=== PATIENT | female | born 1970 | race Caucasian/White ===

== ENCOUNTER 2021-07-08 17:39 | Inpatient (IN) | payer OTHER ==
[~2021-07-08] VITALS: Ht 170.2 cm; Wt 70.3 kg
[2021-07-08] MEDS ORDERED: NOREPINEPHRINE 8 MG/250 ML 250 ML IV ONE (20:52)
[2021-07-08] MEDS ORDERED: LACTATED RINGERS 1,000 ML IV ONE (20:55)
[2021-07-08] MEDS: LACTATED RINGERS 1,000 ML IV SCH (21:00)
--- NOTE | 2021-07-08 21:08 | Tele-ICU Consult ---
History of Present Illness History of Present Illness Date Seen by Provider: Jul 08, 2021 Time Seen by Provider: 21:04 Date of Admission 51 y old lady with no significant PMHX, presented with hypotension 84/60- received 3l fluid challenge wo improvement. Pt was started on rocephin/ followed by zosyn ; levophed was added for hemodynamic hindu. Allergies and Home Medications Allergies Coded Allergies: No Allergy Information Available (Unverified , 07/08/21) Review of Systems Constitutional: no symptoms reported, see HPI Sepsis Event Evaluation Sepsis Stage: Sepsis Possible Source: Genitouriary Height, Weight, BMI Height: '" Weight: lbs. oz. kg; BMI Method: Exam Exam Patient acknowledged, consented, and participated in this virtual visit which was conducted using real time audio/video Height & Weight Height: '" Weight: lbs. oz. kg; BMI Method: General Appearance: No Apparent Distress Assessment/Plan Assessment/Plan Septic shock due to UTI -LR @150CC/H LEVOPHED ABX follow sepsis protocol basic labs ordered. p t was visualized CARO NAVAS MD Jul 08, 2021 21:08
[2021-07-08 21:16] LABS: BASOPHILS # (AUTO) 0.1 10^3/uL (0.0-0.1); BASOPHILS % (AUTO) 1 % (0-10); EOSINOPHILS % (AUTO) 0 % (0-10); HEMOGLOBIN 12.1 g/dL (11.5-16.0)
[2021-07-08 21:18] LABS: HEMATOCRIT 35 % (35-52); LYMPHOCYTES # (AUTO) 0.3 10^3/uL (1.0-4.0); LYMPHOCYTES % (AUTO) 2 % (12-44); MEAN CORPUSCULAR HEMOGLOBIN 34 pg (25-34); MEAN CORPUSCULAR HGB CONC 35 g/dL (32-36); MEAN CORPUSCULAR VOLUME 98 fL (80-99); MEAN PLATELET VOLUME 11.1 fL (9.0-12.2); MONOCYTES % (AUTO) 9 % (0-12); NEUTROPHILS % (AUTO) 86 % (42-75); PLATELET COUNT 106 10^3/uL (130-400); WHITE BLOOD COUNT 11.6 10^3/uL (4.3-11.0)
[2021-07-08 21:29] LABS: POTASSIUM 3.3 MMOL/L (3.6-5.0)
[2021-07-08 21:30] LABS: CALCIUM 7.8 MG/DL (8.5-10.1)
[2021-07-08] MEDS: NOREPINEPHRINE 8 MG/250 ML 250 ML IV SCH (21:30)
[2021-07-08 21:34] LABS: CREATININE SERUM 3.5 MG/DL (0.60-1.30)
[2021-07-08] MEDS ORDERED: diphenhydrAMINE 50 MG/ML INJ (BENADRYL) IVP ONE (21:45)
--- NOTE | 2021-07-08 21:45 | Tele-ICU Consult ---
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 Pt was found hypotensive 80/60; 3l iv fluids given/ rocephin, zosyn given. Procal 98/ cxray showed interstitial changes. She took Ibuprofen frequently. Sepsis protocol. Allergies and Home Medications Allergies Coded Allergies: No Allergy Information Available (Unverified , 07/08/21) Past Medical/Social/Family Hx Patient Social History Tobacco Use?: No Smoking Status: Never a Smoker Past Medical History abnormal pap smear Review of Systems Constitutional: see HPI Sepsis Event Evaluation Height, Weight, BMI Height: '" Weight: lbs. oz. kg; BMI Method: Exam Exam Patient acknowledged, consented, and participated in this virtual visit which was conducted using real time audio/video Vital Signs Date Time Temp Pulse Resp B/P (MAP) Pulse Ox O2 Delivery O2 Flow Rate FiO2 07/08/21 21:30 125 84/53 07/08/21 21:00 38.1 125 20 84/53 98 Room Air Height & Weight Height: '" Weight: lbs. oz. kg; BMI Method: General Appearance: No Apparent Distress Results Lab Laboratory Tests 07/08/21 21:00 Assessment/Plan Assessment/Plan Septic shock due to uti -sepsis protocol repeat labs/ iv fluids on abx FELIX repeat labs/ continue iv fluids -follow bicarb/ if HCO3<20 ABG will be checked. pt was visualized CARO NAVAS MD Jul 08, 2021 21:45
[2021-07-08 21:49] LABS: ATYPICAL LYMPHOCYTES 1 %; BAND NEUTROPHILS 6 %; BURR CELLS SLIGHT; LYMPHOCYTES % (MANUAL) 7 %; METAMYELOCYTES % 1 %; MONOCYTES % (MANUAL) 9 %; NEUTROPHILS % (MANUAL) 76 %
[2021-07-08] MEDS ORDERED: morphine INJ 4 MG/ML 1 ML (VIAL/SYRINGE) IVP STA (23:33)
[2021-07-09 03:26] LABS: BASOPHILS # (AUTO) 0.1 10^3/uL (0.0-0.1); BASOPHILS % (AUTO) 1 % (0-10); EOSINOPHILS % (AUTO) 0 % (0-10); HEMATOCRIT 34 % (35-52); HEMOGLOBIN 11.8 g/dL (11.5-16.0); LYMPHOCYTES # (AUTO) 0.4 10^3/uL (1.0-4.0); LYMPHOCYTES % (AUTO) 3 % (12-44); MEAN CORPUSCULAR HEMOGLOBIN 34 pg (25-34); MEAN CORPUSCULAR HGB CONC 35 g/dL (32-36); MEAN CORPUSCULAR VOLUME 99 fL (80-99); MEAN PLATELET VOLUME 10.7 fL (9.0-12.2); MONOCYTES # (AUTO) 1.2 10^3/uL (0.0-1.0); MONOCYTES % (AUTO) 9 % (0-12); NEUTROPHILS # (AUTO) 11.9 10^3/uL (1.8-7.8); NEUTROPHILS % (AUTO) 86 % (42-75); PLATELET COUNT 112 10^3/uL (130-400); WHITE BLOOD COUNT 13.8 10^3/uL (4.3-11.0)
[2021-07-09] MEDS: LACTATED RINGERS 1,000 ML IV SCH ×4 (03:30→21:56)
[2021-07-09 03:47] LABS: ALBUMIN 2.3 GM/DL (3.2-4.5); POTASSIUM 3.6 MMOL/L (3.6-5.0)
[2021-07-09 03:48] LABS: CALCIUM 7.9 MG/DL (8.5-10.1)
[2021-07-09 03:49] LABS: TOTAL PROTEIN 5.5 GM/DL (6.4-8.2)
[2021-07-09 03:51] LABS: BILIRUBIN,TOTAL 0.9 MG/DL (0.1-1.0)
[2021-07-09 03:53] LABS: CREATININE SERUM 3.66 MG/DL (0.60-1.30)
[2021-07-09 03:56] LABS: MAGNESIUM 1.5 MG/DL (1.6-2.4)
[2021-07-09] MEDS: POTASSIUM CL 10MEQ/50ML IVPB 50 ML IV SCH ×2 (04:03→04:50)
[2021-07-09] MEDS: KCL 20 MEQ TAB (K-DUR) PO SCH (04:04)
[2021-07-09] MEDS: MAGNESIUM 1 GM/100 ML IVPB 100 ML IV SCH ×3 (04:04→04:51)
[2021-07-09] MEDS ORDERED: diphenhydrAMINE 25 MG TAB (BENADRYL) PO PRN (08:30)
--- NOTE | 2021-07-09 08:42 | Pulmonary Progress Note ---
SYEDA JOY MED STUDENT 07/09/21 0842: Subjective Date Seen by a Provider: Jul 09, 2021 Time Seen by a Provider: 07:30 Subjective/Events-last exam Patient reports feeling tired and weak. Wanting to have something to eat. Tachycardic at 120 per bedside monitor and remains on levophed at 0.05 mcg/kg/min currently. Review of Systems General: No Chills, No Night Sweats HEENT: No Head Aches, No Visual Changes Pulmonary: No Dyspnea, No Cough Cardiovascular: No: Chest Pain, Palpitations Gastrointestinal: No: Nausea, Vomiting, Abdominal Pain Genitourinary: No Dysuria, No Frequency; Other (bragg) Musculoskeletal: back pain; No: neck pain, shoulder pain Neurological: No: Weakness, Numbness, Change in speech, Confusion Sepsis Event Evaluation Height, Weight, BMI Height: '" Weight: lbs. oz. kg; 24.40 BMI Method: Focused Exam Lactate Level 07/08/21 21:00: Lactic Acid Level 2.31*H 07/08/21 22:55: Lactic Acid Level 2.63*H 07/09/21 03:10: Lactic Acid Level 1.94 Exam Exam Patient acknowledged, consented, and participated in this virtual visit which was conducted using real time audio/video Vital Signs Date Time Temp Pulse Resp B/P (MAP) Pulse Ox O2 Delivery O2 Flow Rate FiO2 07/09/21 08:00 37.6 07/09/21 06:00 124 37 92/62 94 Room Air 07/09/21 05:00 125 35 115/59 91 Room Air 07/09/21 04:00 129 13 111/58 92 Room Air 07/09/21 04:00 97 Room Air 07/09/21 03:37 37.8 07/09/21 03:00 117 13 114/63 96 Room Air 07/09/21 02:00 117 31 107/62 94 Room Air 07/09/21 01:00 122 35 109/61 92 Room Air 07/09/21 01:00 122 07/09/21 00:00 120 33 104/56 94 Room Air 07/08/21 23:59 97 Room Air 07/08/21 23:00 134 16 105/58 98 Room Air 07/08/21 22:00 130 11 106/62 99 Room Air 07/08/21 21:45 133 35 112/60 100 Room Air 07/08/21 21:30 135 19 114/51 95 Room Air 07/08/21 21:30 125 84/53 07/08/21 21:15 126 35 104/48 98 Room Air 07/08/21 21:00 38.1 125 20 84/53 98 Room Air 07/08/21 20:51 132 I & O 07/09/21 07:00 Intake Total 9100 ml Output Total 425 ml Balance 8675 ml Height & Weight Height: '" Weight: lbs. oz. kg; 24.40 BMI Method: General Appearance: No Apparent Distress, WD/WN HEENT: PERRL/EOMI, Moist Mucous Membranes Neck: Full Range of Motion, Non Tender, Supple, Other (RIJ CVC) Respiratory: Chest Non Tender, Lungs Clear, Normal Breath Sounds, No Accessory Muscle Use, No Respiratory Distress Cardiovascular: No Edema, No Murmur, Normal Peripheral Pulses, Tachycardia Peripheral Pulses: 2+ Dorsalis Pedis (R), 2+ Left Dors-Pedis (L), 2+ Radial Pulses (R), 2+ Radial Pulses (L) Gastrointestinal: normal bowel sounds, non tender, soft; No distended, No guarding, No rebound, No tenderness Extremity: Normal Capillary Refill, Non Tender, No Calf Tenderness, No Pedal Edema Neurologic/Psychiatric: Alert, Oriented x3, No Motor/Sensory Deficits, Normal 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, 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 KASSY HUTSON MD 07/09/21 1246: Supervisory-Addendum Brief Verification & Attestation Participated in pt care: history, MDM, physical Personally performed: history, MDM, supervision of care Care discussed with: Medical Student Procedures: n/a A medical student performed and documented this service. I reviewed all info rmation documented by the medical student and made modifications to such information, when appropriate. Medical student performed patients physical exam. Medical decision making was done during tele-rounds with this medical student and a bedside RN . SYEDA JOY MED STUDENT Jul 09, 2021 08:42 KASSY HUTSON MD Jul 09, 2021 12:46
[2021-07-09] MEDS: HYDROcodone/APAP 5 MG/325 MG (LORTAB) TAB PO PRN (08:49)
[2021-07-09] MEDS: cefTRIAXone 1,000 MG in WATER (STERILE) FOR INJECTION 10 ML IV SCH (08:50)
--- NOTE | 2021-07-09 09:48 | History & Physical-Hospitalist ---
History of Present Illness HPI/Chief Complaint Pt is a 51yoCF who presented from outside ER due to septic shock. She reports that she has not been feeling well since the . She has had fevers and chills. She developed some abdominal pain and back pain as well. She decided to seek evaluation yesterday in the emergency room when she did not get any better and was found to have a urinary tract infection with hypotension. She was transferred here for ICU level care. They attempted fluid resuscitation due to the hypotension but she remained with a map below 65 so was started on Levophed. This morning she states she is feeling a little better but is still having back pain. Her mother is at bedside and gives most of the history. Mother reports that a CT of her abdomen was done but those records were not sent so we have requested that. Source: patient Date Seen 07/09/21 Time Seen by a Provider: 09:43 Attending Physician Naldo Brito MD PCP Nikko Umanzor MD Referring Physician Date of Admission Jul 08, 2021 at 20:43 Home Medications & Allergies Home Medications Reviewed patient Home Medication Reconciliation performed by pharmacy medication reconciliations thermal technician and/or nursing. Patients Allergies have been reviewed. Allergies Allergies Coded Allergies No Allergy Information Available (Unverified07/08/21) Past Bktxffl-Fwqlpf-Nzubnk Hx Patient Social History Tobacco Use?: No Smoking Status: Never a Smoker Substance use?: No Alcohol Use?: No Pt feels they are or have been: No Immunizations Up To Date First/Initial COVID19 Vaccinat: JANUARY 14 2021 Second COVID19 Vaccination [place]: January Current Status status: No status: No Advance Directives: No Communicates: Verbally Primary Language: Ghanaian Preferred Spoken Language: Ghanaian Is interpretation needed?: No Sensory deficits: Vision impairment Implanted or Applied Medical D: None Past Medical History abnormal pap smear Family Medical History Reviewed Nursing Family Hx No Pertinent Family Hx Mother alive Review of Systems Constitutional: fever, malaise EENTM: no symptoms reported Respiratory: No cough, No short of breath Cardiovascular: no symptoms reported Gastrointestinal: abdominal pain, nausea, vomiting Genitourinary: see HPI Musculoskeletal: back pain Skin: no symptoms reported Psychiatric/Neurological: No Symptoms Reported Physical Exam Physical Exam Vital Signs Vital Signs - First Documented 07/08/21 07/08/21 20:51 21:00 Temp 38.1 Pulse 132 Resp 20 B/P (MAP) 84/53 Pulse Ox 98 O2 Delivery Room Air Capillary Refill : Height, Weight, BMI Height: '" Weight: lbs. oz. kg; 24.40 BMI Method: General Appearance: No Apparent Distress, WD/WN HEENT: PERRL/EOMI, Moist Mucous Membranes Neck: Normal Inspection, Supple Respiratory: Lungs Clear, No Respiratory Distress Cardiovascular: Regular Rate, Rhythm, No Murmur Gastrointestinal: Normal Bowel Sounds, Non Tender, Soft Neurologic/Psychiatric: Alert, Oriented x3, Normal Mood/Affect Skin: Normal Color, Warm/Dry Results Results/Procedures Labs Laboratory Tests 07/08/21 21:00 07/09/21 03:10 Patient resulted labs reviewed. Imaging: Reviewed Imaging Report Assessment/Plan Admission Diagnosis Septic Shock Admission Status: Inpatient Order (span 2 midnights) Reason for Inpatient Admission: see below Assessment and Plan Septic Shock UTI GNR bacteremia Continue on Rocephin Await cultures and sensitivities from OSH COVID negative at OSH Currently on levophed, wean as able request CT results from [facility] Hydrocodone for pain FELIX Was talking high dose Ibuprofen for pain trend Not acidotic and K WNL Monitor UOP DVT ppx: heparin due to FELIX Diagnosis/Problems Diagnosis/Problems (1) FELIX (acute kidney injury) (2) UTI (urinary tract infection) (3) Bacteremia (4) Septic shock NALDO BRITO MD Jul 09, 2021 09:48
[2021-07-09] MEDS ORDERED: PANTOPRAZOLE 40 MG (PROTONIX) VIAL IV ONE (10:00)
--- NOTE | 2021-07-09 14:57 | Physical Therapy Evaluation ---
PT Evaluation-General Medical Diagnosis Admission Date Jul 08, 2021 at 20:43 Medical Diagnosis: sepsis, UTI Onset Date: Jul 08, 2021 Therapy Diagnosis Therapy Diagnosis: impaired mobility, strength, endurance Precautions Precautions/Isolations: Standard Precautions Referral Physician: Daryl Reason for Referral: Evaluation/Treatment Social History Home: Single Level Current Living Status: Children Entry Into Home: Level Entry Prior Prior Level of Function SCALE: Activities may be completed with or without assistive devices. 7-Bhqpvgttbg-wfjubcm completes the activity by him/herself with no assistance from a helper. 5-Set-up or Clean-up Assistance-helper sets up or cleans up; patient completes activity. [place] assists only prior to or following the activity. 4-Supervision or Touching Assistance-helper provides verbal cues and/or touching/steadying and/or contact guard assistance as patient completes activity. Assistance may be provided throughout the activity or intermittently. 3-Partial/Moderate Assistance-helper does LESS THAN HALF the effort. [place] lifts, holds or supports trunk or limbs, but provides less than half the effort. 2-Substantial/Maximal Assistance-helper does MORE THAN HALF the effort. [place] lifts or holds trunk or limbs and provides more than half the effort. 1-Zbjakopwd-aqguba does ALL the effort. Patient does none of the effort to complete the activity. Or, the assistance of 2 or more helpers is required for the patient to complete the activity. If activity was not attempted, code reason: 7-Patient Refused. 9-Not Applicable-not attempted and the patient did not perform the activity before the current illness, exacerbation or injury. 10-Not Attempted due to Environmental Limitations-(lack of equipment, weather restraints, etc.). 88-Not Attempted due to Medical Conditions or Safety Concerns. Bed Mobility: 6 Transfers (B,C,W/C): 6 Gait: 6 Stairs: 6 Indoor Mobility (Ambulation): Independent Stairs: Independent PT Evaluation-Current Subjective Patient in bed pre tx, agrees to PT, has no pain at rest. Pt/Family Goals "to get stronger" Objective Patient Orientation: Person, Place, Situation Attachments: Oxygen, Pope Catheter, IV ROM/Strength ROM Lower Extremities WNL Strength Lower Extremities LLE (hip flexion 4/5, knee flexion 4/5, knee extension 4/5, dorsiflexion 4/5), RLE (hip flexion 4/5, knee flexion 4/5, knee extension 4/5, dorsiflexion 4/5) Sensory Vision: Functional Hearing: Functional Sensation Right Lower Extremit: Intact Sensation Left Lower Extremity: Intact Transfers Roll Left to Right (QC): 6 Sit to Lying (QC): 4 Lying to Sitting/Side of Bed(Q: 4 Sit to Stand (QC): 4 SBA for supine <-> sit, CGA for sit <-> stand. Patient was able to stand for several minutes, didn't want to ambulate forward yet, got a little dizzy after standing but it cleared fairly quickly, sat down after getting tired. Balance Sitting Static: Normal Sitting Dynamic: Normal Standing Static: Fair Standing Dynamic: Fair Treatment BLE supine exercises x20 (AP, HS) Assessment/Needs Patient in bed post tx with nurse call, phone, tray, all needs met. Patient has impaired mobility, strength, endurance. Patient gets dizzy after standing but clears quickly, needs CGA for sit to stand. 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 Time Frame: Jul 16, 2021 Roll Left & Right (QC): 6 Sit to Lying (QC): 6 Lying-Sitting on Side/Bed(QC): 6 Sit to Stand (QC): 4 Chair/Pjb-bc-Czymq Xfer(QC): 4 Walk 10 feet (QC): 4 Walk 50ft with 2 Turns (QC): 4 PT Plan Problem List Problem List: Activity Tolerance, Functional Strength, Safety, Balance, Gait, Transfer, Bed Mobility, ROM Treatment/Plan Treatment Plan: Continue Plan of Care Treatment Plan: Bed Mobility, Education, Functional Activity Penny, Functional Strength, Gait, Safety, Therapeutic Exercise, Transfers Treatment Duration: Jul 16, 2021 Frequency: 6 times per week Estimated Hrs Per Day: .25 hour per day Patient and/or Family Agrees t: Yes Safety Risks/Education Patient Education: Transfer Techniques, Correct Positioning, Safety Issues Teaching Recipient: Patient Teaching Methods: Demonstration, Discussion Response to Teaching: Reinforcement Needed Discharge Recommendations Plan Patient will perform bed mobility and transfer training, balance and endurance training, functional strengthening, stair training, gait training, and education, to improve functional mobility and independence at home. Therapy Discharge Recommendati: Home & Family, Post Acute PT Time/GCodes Time In: 1416 Time Out: 1430 Total Billed Treatment Time: 14 Total Billed Treatment 1 visit EVL 14' ALVINO NERI PT Jul 09, 2021 14:57
[2021-07-09 15:13] VITALS: BP 112/68
[2021-07-09] MEDS: NOREPINEPHRINE 8 MG/250 ML 250 ML IV SCH (15:13)
[2021-07-10] MEDS: HYDROcodone/APAP 5 MG/325 MG (LORTAB) TAB PO PRN ×2 (04:32→10:07)
[2021-07-10] MEDS: LACTATED RINGERS 1,000 ML IV SCH (04:32)
[2021-07-10 04:38] LABS: EOSINOPHILS % (AUTO) 0 % (0-10); HEMOGLOBIN 10.6 g/dL (11.5-16.0); NEUTROPHILS % (AUTO) 83 % (42-75); PLATELET COUNT 90 10^3/uL (130-400)
[2021-07-10 04:40] LABS: BASOPHILS # (AUTO) 0.1 10^3/uL (0.0-0.1); BASOPHILS % (AUTO) 1 % (0-10); HEMATOCRIT 31 % (35-52); LYMPHOCYTES # (AUTO) 0.6 10^3/uL (1.0-4.0); LYMPHOCYTES % (AUTO) 6 % (12-44); MEAN CORPUSCULAR HEMOGLOBIN 33 pg (25-34); MEAN CORPUSCULAR HGB CONC 34 g/dL (32-36); MEAN CORPUSCULAR VOLUME 97 fL (80-99); MEAN PLATELET VOLUME 10.9 fL (9.0-12.2); MONOCYTES # (AUTO) 0.9 10^3/uL (0.0-1.0); MONOCYTES % (AUTO) 9 % (0-12); NEUTROPHILS # (AUTO) 8.5 10^3/uL (1.8-7.8); WHITE BLOOD COUNT 10.3 10^3/uL (4.3-11.0)
[2021-07-10 04:50] LABS: POTASSIUM 3.8 MMOL/L (3.6-5.0)
[2021-07-10 04:51] LABS: CALCIUM 7.9 MG/DL (8.5-10.1)
[2021-07-10 04:54] LABS: BILIRUBIN,TOTAL 0.7 MG/DL (0.1-1.0)
[2021-07-10 04:55] LABS: PHOSPHORUS 1.7 MG/DL (2.3-4.7)
[2021-07-10 04:56] LABS: CREATININE SERUM 4.13 MG/DL (0.60-1.30)
[2021-07-10 04:59] LABS: MAGNESIUM 2.4 MG/DL (1.6-2.4)
[2021-07-10] MEDS: MAGNESIUM 1 GM/100 ML IVPB 100 ML IV SCH (05:00)
[2021-07-10] MEDS: KCL 20 MEQ TAB (K-DUR) PO SCH (05:00)
[2021-07-10] MEDS: POTASSIUM CL 10MEQ/50ML IVPB 50 ML IV SCH (05:00)
--- NOTE | 2021-07-10 08:46 | Discharge Summary ---
Diagnosis/Chief Complaint Date of Admission Jul 08, 2021 at 20:43 Date of Discharge Admission Diagnosis Septic Shock Primary Care Nikko Umanzor MD Discharge Diagnosis (1) FELIX (acute kidney injury) (2) UTI (urinary tract infection) (3) Bacteremia (4) Septic shock Discharge Summary Discharge Physical Exam Allergies: Coded Allergies: No Allergy Information Available (Unverified , 07/08/21) Vitals & I&Os Vital Signs Date Time Temp Pulse Resp B/P (MAP) Pulse Ox O2 Delivery O2 Flow Rate FiO2 07/10/21 10:00 118 20 115/56 92 Nasal Cannula 2.00 07/10/21 00:00 36.3 General Appearance: No Apparent Distress, WD/WN Cardiovascular: Regular Rate, Rhythm, No Murmur Gastrointestinal: Normal Bowel Sounds, Non Tender, Soft Neurologic/Psychiatric: Alert, Oriented x3 Hospital Course Patient is a 51-year-old female who was transferred here from outside facility due to septic shock due to pyelonephritis. She also had an acute kidney injury which at first was presumed to be due to sepsis. She was treated with IV antibiotics. Outside cultures revealed gram-negative bacteremia. She was fluid resuscitated and remained hypotensive and had short-term pressor need as well. She was able to be titrated off of pressors despite this though her renal function continued to worsen. She was becoming more acidotic and oliguric. Decision was made to transfer patient. She was transferred to [facility] for nephrology. Labs (last 24 hrs) Microbiology 07/08/21 MRSA Screen - Final, Complete MRSA not isolated Patient resulted labs reviewed. Pending Labs Imaging: Reviewed Imaging Report Discussion & Recommendations Discharge Planning: >30 minutes discharge planning Discharge Home Medications: Active Scripts Active No Active Prescriptions or Reported Medications Instructions to patient/family Please see electronic discharge instructions given to patient. NALDO HAND MD Jul 10, 2021 08:46
[2021-07-10] MEDS ORDERED: PANTOPRAZOLE 40 MG (PROTONIX) VIAL IV SCH (09:00)
--- NOTE | 2021-07-10 09:12 | Pulmonary Progress Note ---
Subjective Date Seen by a Provider: Jul 10, 2021 Time Seen by a Provider: 07:15 Subjective/Events-last exam Awake and alert in room. Off pressors. Denies complaints. States is doing ok. Has no questions or concerns. Remains tachycardic with rates between 110-130. LR infusing at 150ml/hr. Review of Systems General: No Chills, No Night Sweats HEENT: No Head Aches, No Visual Changes Pulmonary: No Dyspnea, No Cough Cardiovascular: No: Chest Pain, Palpitations Gastrointestinal: No: Nausea, Vomiting Genitourinary: No Dysuria; Other (bragg) Musculoskeletal: No: neck pain, back pain Neurological: No: Weakness, Numbness, Change in speech, Confusion Sepsis Event Evaluation Height, Weight, BMI Height: '" Weight: lbs. oz. kg; 24.40 BMI Method: Focused Exam Lactate Level 07/08/21 21:00: Lactic Acid Level 2.31*H 07/08/21 22:55: Lactic Acid Level 2.63*H 07/09/21 03:10: Lactic Acid Level 1.94 Exam Exam Patient acknowledged, consented, and participated in this virtual visit which was conducted using real time audio/video Vital Signs Date Time Temp Pulse Resp B/P (MAP) Pulse Ox O2 Delivery O2 Flow Rate FiO2 07/10/21 06:00 128 23 113/60 87 Nasal Cannula 2.00 07/10/21 05:00 122 23 116/63 89 Nasal Cannula 2.00 07/10/21 04:00 95 Nasal Cannula 2.00 07/10/21 04:00 116 23 110/63 92 Nasal Cannula 2.00 07/10/21 03:00 117 24 112/66 92 Nasal Cannula 2.00 07/10/21 02:00 118 22 108/60 89 Nasal Cannula 2.00 07/10/21 01:00 129 07/10/21 01:00 129 25 109/55 90 Nasal Cannula 2.00 07/10/21 00:40 130 25 89 Nasal Cannula 2.00 07/10/21 00:00 36.3 07/10/21 00:00 130 27 110/64 91 Nasal Cannula 1.00 07/09/21 23:59 95 Nasal Cannula 1.00 07/09/21 23:00 131 27 101/55 92 Nasal Cannula 1.00 07/09/21 22:00 126 25 111/56 91 Nasal Cannula 1.00 07/09/21 21:00 120 25 102/48 93 Nasal Cannula 1.00 07/09/21 20:00 118 23 100/61 92 Nasal Cannula 1.00 07/09/21 20:00 36.6 Nasal Cannula 1.00 07/09/21 20:00 96 Nasal Cannula 1.00 07/09/21 19:00 121 22 100/64 Nasal Cannula 1.00 07/09/21 19:00 121 07/09/21 18:00 116 27 114/66 91 Nasal Cannula 1.00 07/09/21 17:00 114 25 102/59 92 Nasal Cannula 1.00 07/09/21 16:00 36.6 07/09/21 16:00 111 26 101/58 89 Nasal Cannula 1.00 07/09/21 16:00 96 Nasal Cannula 1.00 07/09/21 15:13 114 112/68 07/09/21 15:00 107 25 100/63 92 Nasal Cannula 1.00 07/09/21 14:00 114 23 112/68 93 Nasal Cannula 1.00 07/09/21 13:05 105 07/09/21 13:00 107 26 99/63 89 Nasal Cannula 1.00 07/09/21 12:00 36.4 07/09/21 12:00 117 29 106/60 91 Nasal Cannula 1.00 07/09/21 12:00 92 Room Air 07/09/21 11:00 112 29 100/62 88 Room Air 07/09/21 10:00 118 33 99/66 91 Room Air I & O 07/10/21 07:00 Intake Total 13873 ml Output Total 815 ml Balance 19723 ml Height & Weight Height: '" Weight: lbs. oz. kg; 24.40 BMI Method: General Appearance: No Apparent Distress, WD/WN HEENT: PERRL/EOMI, Moist Mucous Membranes Neck: Full Range of Motion, Non Tender, Supple, Other (LAJ CVC) Respiratory: Chest Non Tender, Lungs Clear, Normal Breath Sounds, No Accessory Muscle Use, No Respiratory Distress Cardiovascular: No Edema, No Murmur, Normal Peripheral Pulses, Tachycardia Peripheral Pulses: 2+ Dorsalis Pedis (R), 2+ Left Dors-Pedis (L), 2+ Radial Pulses (R), 2+ Radial Pulses (L) Gastrointestinal: normal bowel sounds, non tender, soft; No distended, No guarding, No rebound, No tenderness Extremity: Normal Capillary Refill, Non Tender, No Calf Tenderness, No Pedal Edema Neurologic/Psychiatric: Alert, Oriented x3, No Motor/Sensory Deficits, Normal Mood/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 BUN 58 -continue to monitor closely -avoid nephrotoxins Anemia -hgb 10.7, likely dilutional -continue to monitor Thrombocytopenia -plat 90, trending down -continue to monitor Mild hyponatremia -Na 131 -continue to monitor Hypophosphatemia -continue to monitor closely GI ppx -protonix DVT ppx -heparin due to renal failure CT scan abdomen performed at OSH, results requested by primary team. SUKHDEV CVC: 07/08? Bragg: 07/08? PIV: R AC Patient being transferred to [facility] in [place], [place] due to renal failure. SYEDA JOY MED STUDENT Jul 10, 2021 09:12
[2021-07-10] MEDS: NOREPINEPHRINE 8 MG/250 ML 250 ML IV SCH (09:21)
[2021-07-10] MEDS: cefTRIAXone 1,000 MG in WATER (STERILE) FOR INJECTION 10 ML IV SCH (09:21)
--- NOTE | 2021-07-10 09:30 | Physical Therapy Progress Note ---
Therapy Progress Note Attempted to see patient for PT treatment. Nurse requests hold at this time as patient is scheduled to Discharge to [facility] in [place] later today. No further PT expected at this time. This note will serve at the D/C note. DAKOTA HENRY PT Jul 10, 2021 09:30
== END 2021-07-10 10:25 | disposition short-term general hospital (02) | DRG 871 ==
LOC: ICU 20:43
PROVIDERS: ADMIT Family Medicine; ATTEND Family Medicine
DX: A41.9 Sepsis, unspecified organism (principal); R65.21 Severe sepsis with septic shock; N39.0 Urinary tract infection, site not specified; N17.9 Acute kidney failure, unspecified; E87.1 Hypo-osmolality and hyponatremia; D69.6 Thrombocytopenia, unspecified; E83.39 Other disorders of phosphorus metabolism; E83.42 Hypomagnesemia; D64.9 Anemia, unspecified; H54.7 Unspecified visual loss
CPT/HCPCS: 36415; 80048; 80053; 83605; 83735; 84100; 85007; 85025; 85027; 87081